=== PATIENT | male | born 1945 | race Caucasian/White ===

== ENCOUNTER 2016-12-06 02:51 | Emergency (ER) | payer MEDICARE ==
[~2016-12-06] VITALS: Ht 175.3 cm; Wt 97.0 kg
[2016-12-06 03:00] VITALS: BP 165/110
== END 2016-12-06 03:44 | disposition home or self-care (01) ==
LOC: ED 02:51
DX: T60.91XA Toxic effect of unspecified pesticide, accidental (unintentional), initial encounter (principal); Y92.009 Unspecified place in unspecified non-institutional (private) residence as the place of occurrence of the external cause

== ENCOUNTER 2019-05-10 09:40 | Emergency (ER) | payer MEDICARE ==
[2019-05-10] MEDS ORDERED: METOPROL TAR25 MG PO (10:10)
[2019-05-10] MEDS ORDERED: LIPITOR20 MG PO (10:11)
[2019-05-10] MEDS ORDERED: NORVASC5 M1 PO (10:12)
[2019-05-10] MEDS ORDERED: BENAZEPRIL5 MG PO (10:12)
[2019-05-10] MEDS ORDERED: GABAPENTIN100 MG PO (10:13)
[2019-05-10 10:35] VITALS: BP 142/93
== END 2019-05-10 10:35 | disposition home or self-care (01) ==
LOC: ED 09:40
DX: Z03.89 Encounter for observation for other suspected diseases and conditions ruled out (principal); I10 Essential (primary) hypertension

== ENCOUNTER 2019-05-15 | Emergency (ER) | payer MEDICARE ==
[~2019-05-15] MED LIST: BENAZEPRIL5 MG PO; GABAPENTIN100 MG PO; LIPITOR20 MG PO; METOPROL TAR25 MG PO; NORVASC5 M1 PO
[2019-05-15 16:33] LABS: HEMATOCRIT 45.5 % (39.0-50.0); HEMOGLOBIN 15.3 g/dl (14.0-18.0); IMMATURE GRANULOCYTES 0.2 % (0.0-5.0); MEAN CELL VOLUME 92.1 fL CALC (80.0-100.0); MEAN CORPUSCULAR HGB CONC 33.6 g/dL CAL (32.0-36.0); NEUT# 5.91 thou/uL (1.82-7.42); RED BLOOD COUNT 4.94 mill/uL (4.70-6.10); RED CELL DISTRI WIDTH 12.9 % (11.5-15.5)
[2019-05-15 16:50] LABS: ALBUMIN 4.2 g/dL (3.2-5.0); ALKALINE PHOSPHATASE 93 u/l (38-126); ANION GAP 12 (6-22 (CALC)); BUN 26 mg/dL (8-23); BUN/CREATININE RATIO 17 (12-20 (CALC)); CARBON DIOXIDE 26 mmol/l (22-30); CHLORIDE 107 mmol/l (95-108); CREATININE 1.5 mg/dL (0.7-1.3); GFR 46 ML/MIN (>=60 (CALC)); GFR FOR AFR.AMER. 56 ML/MIN (>=60 (CALC)); POTASSIUM 4.2 mmol/l (3.5-5.1); SGOT/AST 27 u/l (19-48); SODIUM 140 mmol/l (137-146); TOTAL PROTEIN 7.2 g/dL (6.3-8.2)
[2019-05-15 16:51] LABS: PROTHROMBIN TIME 10.4 SECONDS (9.0-12.5)
[2019-05-15 17:10] LABS: BILIRUBIN, TOTAL 1.1 mg/dL (0.0-1.4)
[2019-05-15] MEDS ORDERED: TESSALON PER100 MG PO (18:40)
[2019-05-15] MEDS ORDERED: ZITHROMAX250 MG PO (18:40)
== END 2019-05-15 19:29 | disposition home or self-care (01) ==
PROVIDERS: Emergency Medicine
DX: J40 Bronchitis, not specified as acute or chronic (principal); I10 Essential (primary) hypertension; G62.9 Polyneuropathy, unspecified

== ENCOUNTER 2020-12-13 09:17 | Emergency (ER) | payer MEDICARE ==
[~2020-12-13] VITALS: Ht 175.3 cm; Wt 93.6 kg
[~2020-12-13 09:17] MED LIST changes: +BENAZEPRIL20 M1 PO; -BENAZEPRIL5 MG PO; +TESSALON PER100 MG PO; +ZITHROMAX250 MG PO
[2020-12-13] MEDS ORDERED: HYCODAN1 ML PO (11:04)
[2020-12-13] MEDS ORDERED: CODEINE/GUAIFEN1 SOL PO (11:29)
[2020-12-13 11:37] VITALS: BP 136/82
== END 2020-12-13 11:38 | disposition home or self-care (01) ==
LOC: ED 09:17
DX: R09.81 Nasal congestion (principal); R05.9 Cough, unspecified; M79.10 Myalgia, unspecified site; I10 Essential (primary) hypertension; E78.00 Pure hypercholesterolemia, unspecified; G62.9 Polyneuropathy, unspecified; Z20.822 Contact with and (suspected) exposure to COVID-19

== ENCOUNTER 2021-07-29 01:08 | Emergency (ER) | payer MEDICARE ==
[2021-07-29] VITALS (7 sets, daily range): BP systolic 126–189; BP diastolic 85–112
[~2021-07-29] VITALS: Ht 175.3 cm; Wt 95.0 kg
[~2021-07-29 01:08] MED LIST changes: +CODEINE/GUAIFEN1 SOL PO; +HYCODAN1 ML PO
[2021-07-29] MEDS ORDERED: ASPIRIN81 MG PO (01:28)
[2021-07-29 02:18] LABS: HEMATOCRIT 49.3 % (39.0-50.0); HEMOGLOBIN 16.3 g/dl (14.0-18.0); IMMATURE GRANULOCYTES 0.5 % (0.0-5.0); MEAN CELL VOLUME 95.7 fL CALC (80.0-100.0); MEAN CORPUSCULAR HGB 31.7 pG CALC (26.0-32.0); MEAN CORPUSCULAR HGB CONC 33.1 g/dL CAL (32.0-36.0); NEUT# 8.07 thou/uL (1.82-7.42); RED BLOOD COUNT 5.15 mill/uL (4.70-6.10); RED CELL DISTRI WIDTH 13.1 % (11.5-15.5)
[2021-07-29 02:28] LABS: ALBUMIN 4.2 g/dL (3.2-5.0); CREATININE 1.9 mg/dL (0.7-1.3); POTASSIUM 4.3 mmol/l (3.5-5.1); TOTAL PROTEIN 7.3 g/dL (6.3-8.2)
[2021-07-29 02:29] LABS: BILIRUBIN, TOTAL 0.6 mg/dL (0.0-1.4)
[2021-07-29] MEDS ORDERED: TESSALON PERLE100 MG PO (03:05)
== END 2021-07-29 03:13 | disposition home or self-care (01) ==
LOC: ED 01:08
DX: J06.9 Acute upper respiratory infection, unspecified (principal); G91.9 Hydrocephalus, unspecified; I10 Essential (primary) hypertension; G62.9 Polyneuropathy, unspecified; E78.00 Pure hypercholesterolemia, unspecified; Z20.822 Contact with and (suspected) exposure to COVID-19

== ENCOUNTER 2022-04-27 20:55 | Emergency (ER) | payer MEDICARE ==
[~2022-04-27] VITALS: Ht 175.3 cm; Wt 97.0 kg
[~2022-04-27 20:55] MED LIST changes: +ASPIRIN81 MG PO; +TESSALON PERLE100 MG PO
[2022-04-27] MEDS ORDERED: LORTAB 1010 MG PO (23:32)
[2022-04-27 23:45] VITALS: BP 132/74
== END 2022-04-27 23:45 | disposition home or self-care (01) ==
LOC: ED 20:55
PROC: 0RSLXZZ Reposition Right Elbow Joint, External Approach (ICD-10-PCS; principal; 2022-04-27)
DX: S53.114A Anterior dislocation of right ulnohumeral joint, initial encounter (principal); I10 Essential (primary) hypertension; G62.9 Polyneuropathy, unspecified; E78.00 Pure hypercholesterolemia, unspecified; W01.0XXA Fall on same level from slipping, tripping and stumbling without subsequent striking against object, initial encounter; Y92.22 Religious institution as the place of occurrence of the external cause

== ENCOUNTER 2022-05-19 14:18 | Emergency (ER) | payer MEDICARE ==
[~2022-05-19] VITALS: Ht 175.3 cm; Wt 96.2 kg
[~2022-05-19 14:18] MED LIST changes: +LORTAB 1010 MG PO
[2022-05-19 16:15] VITALS: BP 139/66
[2022-05-19 19:19] VITALS: BP 138/100
[2022-05-19 19:22] VITALS: BP 142/77
[2022-05-19 19:23] VITALS: BP 142/77
== END 2022-05-19 20:00 | disposition home or self-care (01) ==
LOC: ED 14:18
PROC: 0RSLXZZ Reposition Right Elbow Joint, External Approach (ICD-10-PCS; principal; 2022-05-19)
DX: M24.421 Recurrent dislocation, right elbow (principal); S52.001A Unspecified fracture of upper end of right ulna, initial encounter for closed fracture; I10 Essential (primary) hypertension; G62.9 Polyneuropathy, unspecified; E78.00 Pure hypercholesterolemia, unspecified; X58.XXXA Exposure to other specified factors, initial encounter

== ENCOUNTER 2023-09-23 12:47 | Emergency (ER) | payer MEDICARE ==
[2023-09-23] VITALS (8 sets, daily range): BP systolic 77–127; BP diastolic 53–78
[~2023-09-23] VITALS: Ht 175.3 cm; Wt 94.3 kg
[2023-09-23 13:23] LABS: BASO% 0.4 % (0-3); HEMATOCRIT 47.4 % (39.0-50.0); LYMPH% 16.6 % (15-41); MEAN CORPUSCULAR HGB 31.7 pG CALC (26.0-32.0); MEAN CORPUSCULAR HGB CONC 33.8 g/dL CAL (32.0-36.0); MONO% 13.9 % (2-13); NEUT# 3.52 thou/uL (1.82-7.42); NEUT% 68.1 % (42-76); RED BLOOD COUNT 5.04 mill/uL (4.70-6.10); RED CELL DISTRI WIDTH 13.5 % (11.5-15.5)
[2023-09-23 13:35] LABS: ALBUMIN 4.6 g/dL (3.2-5.0); CREATININE 1.8 mg/dL (0.7-1.3); POTASSIUM 4.2 mmol/l (3.5-5.1)
[2023-09-23 13:44] LABS: BILIRUBIN, TOTAL 1.3 mg/dL (0.2-1.3)
== END 2023-09-23 14:35 | disposition home or self-care (01) ==
LOC: ED 12:47
PROVIDERS: Family Medicine
DX: U07.1 COVID-19 (principal); I10 Essential (primary) hypertension; G62.9 Polyneuropathy, unspecified; E78.00 Pure hypercholesterolemia, unspecified